=== PATIENT | male | born 1955 | race Two or more races ===

== ENCOUNTER 2016-10-30 17:05 | Emergency (ER) | payer SELFPAY ==
--- NOTE | 2016-10-30 17:38 | Emergency Department Record ---
History of Present Illness - General Chief complaint: Extremity Problem Stated complaint: WC/ SHOULDER INJURY Time Seen by Provider: 10/30/16 17:26 Source: Patient Mode of Arrival: Ambulatory Limitations: No limitations - History of Present Illness Initial comments: The patient is here due to R shoulder pain. He was at work pulling using his R arm to pull hard on something and the object broke away and his R arm was jerked forcefully. He had no pain initially and did not feel or hear a "pop". Shortly after he felt pain and noticed he was unable to move the R arm normally. Now there is significant pain in the R shoulder. There is no numbness or tingling. MD Complaint: Extremity pain, Joint pain Onset/Timin -: Hour(s) Location: Right, Shoulder History of Same: No Severity scale (1-10): 10 Quality: Sharp Consistency: Constant Improves with: Immobilization, Medication Worsens with: Exertion Associated Symptoms: Denies other symptoms - Related Data Previous Rx's Medication Instructions Recorded Hydrocodone/Acetaminophen [Bronson 1 - 2 each PO QID #15 tablet 10/30/16 5-325 Tablet] Allergies Allergy/AdvReac Type Severity Reaction Status Date / Time Latex, Natural Rubber Allergy BLISTERS Verified 10/30/16 17:16 Travel Screening - Travel/Exposure Within Last 30 Days Have you traveled within the last 30 days?: No - Travel/Exposure Within Last Year Have you traveled outside the [place] in the last year?: No - Additonal Travel Details Have you been exposed to anyone with a communicable illness?: No - Travel Symptoms Symptom Screening: None Review of Systems Constitutional: Denies: Chills, Fever Eyes: Denies: Eye discharge ENT: Denies: Congestion Respiratory: Denies: Cough, Dyspnea Past Medical History - SOCIAL HISTORY Smoking Status: Never smoker Alcohol Use: Rare Drug Use: None - RESPIRATORY Hx Respiratory Disorders: No - CARDIOVASCULAR Hx Cardio Disorders: No - NEURO Hx Neuro Disorders: No - GI Hx GI Disorders: No - Hx Genitourinary Disorders: No - ENDOCRINE Hx Endocrine Disorders: No - MUSCULOSKELETAL Hx Musculoskeletal Disorders: No - PSYCH Hx Psych Problems: No - HEMATOLOGY/ONCOLOGY Hx Hematology/Oncology Disorders: No Family Medical History Any Significant Family History?: Yes Hx Cancer: Mother, Brother/Sister Hx Diabetes: Mother Hx Resp Disorders: Father, Mother *Resp Comment: sleep apnea Physical Exam - General General Appearance: Alert, Oriented x3, Cooperative, No acute distress - Head Head exam: Atraumatic, Normocephalic, Normal inspection - Eye Eye exam: Normal appearance, PERRL - Neck Neck exam: Normal inspection, Full ROM. negative: Tenderness - Respiratory Respiratory exam: Normal lung sounds bilaterally. negative: Respiratory distress - Cardiovascular Cardiovascular Exam: Regular rate, Normal rhythm, Normal heart sounds - Extremities Extremities exam: Normal inspection (There is no swelling, bruising or edema noted.), Tenderness (There is anterior and lateral R shoulder tenderness diffusely.), Other (The R arm is NVI with normal pulses.). negative: Full ROM ( The patient is unable to abduct the R shoulder to 90 degrees due to pain. His flexion and extension are also decreased due to pain.) - Neurological Neurological exam: Normal gait. negative: Abnormal gait, Motor sensory deficit Course Vital Signs 10/30/16 17:16 Temperature 98.2 F Pulse Rate 75 Respiratory 20 Rate Blood Pressure 147/94 Pulse Ox 98 - Reevaluation(s) Reevaluation #1: I did explain to the patient what I felt the cause of his pain was. I do feel that he may have injured his R shoulder rotator cuff tendons. He is to see his work Occupational health provider later this week for recheck and for possible R shoulder MRI. 10/30/16 17:52 Medical Decision Making - Data Complexity MDM Data: X-Ray Ordered and/or Reviewed - Radiology Data Radiology results: Report reviewed (R shoulder: Neg.) Disposition Disposition: Discharge Clinical Impression: Right shoulder strain Qualifiers: Encounter type: initial encounter Qualified Code(s): S46.911A - Strain of unspecified muscle, fascia and tendon at shoulder and upper arm level, right arm , initial encounter Disposition: Home, Self-Care Condition: (1) Good Instructions: Shoulder Sprain (ED) Additional Instructions: Please use the sling for a week on the R arm. Do not use the R arm at work. Please take your home Alleve during the day and use the Bronson for night. Please see your PCP or your work Occupational Health Provider for further evaluation and possibly to obtain and MRI of the R shoulder. Prescriptions: Hydrocodone/Acetaminophen [Bronson 5-325 Tablet] 1 - 2 each PO QID #15 tablet Forms: Patient Portal Access Time of Disposition: 17:55
== END 2016-10-30 18:01 | disposition home or self-care (01) ==
LOC: ER 17:05
DX: S46.911A Strain of unspecified muscle, fascia and tendon at shoulder and upper arm level, right arm, initial encounter (principal); X50.9XXA Other and unspecified overexertion or strenuous movements or postures, initial encounter; Y92.414 Local residential or business street as the place of occurrence of the external cause; Y99.0 Civilian activity done for income or pay
CPT/HCPCS: 99283

== ENCOUNTER 2018-12-17 14:36 | Emergency (ER) | payer OTHER ==
[2018-12-17] MEDS ORDERED: PROPARACAINE HCL OPTH 15ML BTL OPTH ONE (14:55)
[2018-12-17] MEDS ORDERED: ERYTHROMYCIN OPTH OINT 3.5GM OPTH ONE (15:09)
--- NOTE | 2018-12-17 15:19 | Emergency Department Record ---
History of Present Illness - General Chief complaint: Eye Problem Stated complaint: rt eye foreign object Time Seen by Provider: 12/17/18 14:40 Source: Patient Mode of Arrival: Ambulatory Limitations: No limitations - History of Present Illness Initial comments: The patient was at work yesterday grinding on metal and felt something get into his R eye around his safety glasses. He denies any blurred vision but is having mild irritation and mild tearing. His Td is UTD. chief complaint: Eye pain Onset/Timin -: Days(s) Onset Description: Sudden Location: Right eye Place: Work Eye Symptoms: Foreign body sensation, Pain, Other Severity: Mild Severity scale (1-10): 4 If Pain, Quality: Aching Consistency: Constant Associated Symptoms: None Treatments Prior to Arrival: Irrigated eye - Related Data Visual acuity (L) = 20/: 40 Visual acuity (R) = 20/: 40 With correction: Yes Hx Tetanus Toxoid Vaccination: Yes Year of Tetanus Vaccination: 2015 Home Medications Medication Instructions Recorded Confirmed Last Taken No Home Med [NO HOME MEDS] 12/17/18 12/17/18 Unknown Allergies Allergy/AdvReac Type Severity Reaction Status Date / Time Latex, Natural Rubber Allergy BLISTERS Verified 12/17/18 14:54 Travel Screening - Travel/Exposure Within Last 30 Days Have you traveled within the last 30 days?: No Review of Systems Constitutional: Denies: Chills, Fever Eyes: Denies: Eye discharge ENT: Denies: Congestion Respiratory: Denies: Cough Past Medical History - SOCIAL HISTORY Smoking Status: Never smoker Alcohol Use: None Drug Use: None - RESPIRATORY Hx Respiratory Disorders: No - CARDIOVASCULAR Hx Cardio Disorders: No - NEURO Hx Neuro Disorders: No - GI Hx GI Disorders: No - Hx Genitourinary Disorders: No - ENDOCRINE Hx Endocrine Disorders: No - MUSCULOSKELETAL Hx Musculoskeletal Disorders: No - PSYCH Hx Psych Problems: No - HEMATOLOGY/ONCOLOGY Hx Hematology/Oncology Disorders: No Family Medical History Any Significant Family History?: Yes Hx Cancer: Mother, Brother/Sister Hx Diabetes: Mother Hx Resp Disorders: Father, Mother *Resp Comment: sleep apnea Physical Exam - General General Appearance: Alert, Oriented x3, Cooperative, No acute distress - Head Head exam: Atraumatic, Normocephalic, Normal inspection - Eye Eye exam: PERRL, Conjunctival injection (Mild R eye.), EOMI, Other (There is a metal FB at the 8:00 position of the R eye cornea. It already is embedded in the cornea.). negative: Normal appearance, Periorbital swelling, Periorbital tenderness With correction: Yes - Neck Neck exam: Normal inspection, Full ROM. negative: Tenderness Course Vital Signs 12/17/18 14:50 Temperature 98.0 F Pulse Rate 66 Respiratory 20 Rate Blood Pressure 149/90 Pulse Ox 98 - Reevaluation(s) Reevaluation #1: Procedure note: The R eye was anesth. with Alcaine and a Qtip was used to attempt to removed the FB. The metal was partially removed but the majority is still left on the cornea. 12/17/18 15:15 Reevaluation #2: Due to the metal on the cornea with a mild rust ring present we did get the patient an appointment with Dr. Hair in [place] for 8:30 am tomorrow. 12/17/18 15:21 Disposition Disposition: Discharge Clinical Impression: Corneal foreign body Qualifiers: Encounter type: initial encounter Laterality: right Qualified Code(s): T15.01XA - Foreign body in cornea, right eye, initial encounter Disposition: Home, Self-Care Condition: (2) Stable Instructions: Eye Foreign Body (ED) Additional Instructions: Please use the ointment in the R eye 4 times a day. Please see Dr. Hair in [place], [address] at 8:00 am tomorrow. Referrals: DANG HAIR [MEDICAL DOCTOR] - Forms: Patient Portal Access Time of Disposition: 15:19 Quality - Quality Measures Quality Measures: N/A - Blood Pressure Screening View Details: Yes Does Patient Have Any of the Following: No Blood Pressure Classification: Hypertensive Reading Systolic Measurement: 149 Diastolic Measurement: 90 Screening for High Blood Pressure: < First Hypertensive BP, F/U Documented > [[id number]] First Hypertensive Follow-up Interventions: Referral to alternative/primary care provider.
== END 2018-12-17 15:30 | disposition home or self-care (01) ==
LOC: ER 14:36
DX: T15.91XA Foreign body on external eye, part unspecified, right eye, initial encounter (principal); W31.1XXA Contact with metalworking machines, initial encounter; Y99.0 Civilian activity done for income or pay
CPT/HCPCS: 65220; 99283